=== PATIENT | female | born 1940 | race Caucasian/White ===

== ENCOUNTER 2023-09-10 12:57 | Outpatient (AMB) | payer MEDICARE, SELFPAY ==
--- NOTE | 2023-09-10 13:20 | HO.SPINEOV ---
Intake Vital Signs 09/10/23 13:26 Height 5 ft Weight 220 lb BMI 43.0 Intake Visit Reasons: cervical radiculopathy Intake Note: Ms. Coronel is here today c/o back pain. MRI done @ [place]. [facility] Required: No Allergies No Known Allergies Allergy (Verified 09/10/23 13:25) Assessment & Plan Assessment & Plan (1) Back pain: Code(s): M54.9 - Dorsalgia, unspecified Plan Dear Isai Thank you for referring Mrs. Coronel to our office today. She is a very nice 82-year-old with history of osteoporosis, compression fractures at L3 and L4 with kyphoplasty done at [facility] [place] in [address] Hammonds, who presents to the office with complaint of generalized low back pain. Mostly in the upper lumbar area. No pain radiating down the legs. Occasionally the pain will radiate out to her hips. The pain starts from the moment she gets up in the morning. She will have to rest in a couch/chair position in a certain way in order to get comfortable. Other than that anytime she is up moving around she seems to get a significant amount of discomfort. Even standing at the counter doing dishes for any length of time can cause her pain. She comes in today with an MRI done in March of 2023 showing multiple compression fractures from T12 to L2. She has tried different things to help the pain including heating pads, activity modifications, medication trials including Vicodin and Percocet. The Percocet did help her some but unfortunately gave her episodes of confusion and disorientation so she stopped it. She can not take Motrin because of her kidneys. Remotely in the past she is done cortisone injections and physical therapy. 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 Social hx: She does not smoke, nor use any drugs/alcohol Medications: Lorazepam, gabapentin, Lasix Allergies: None Physical exam: Patient is awake alert oriented x3 no acute distress, she is able stand up out of a chair with slight discomfort, has a standing kyphotic posture, some limitations with strength with her iliopsoas mostly on the right which is secondary to pain but no true neurological weakness. Absent reflexes bilaterally. Imaging review: Lumbar MRI done at [place] shows evidence of kyphoplasty at L3 and L4. She has what looked like healed fractures at T12-L1 and L2. There is significant reversal of the normal lordotic curvature of the spine. There other mild degenerative changes in the lumbar spine lower down. Impression: 82-year-old female presents with back pain likely a constellation of affects from her compression fractures causing suboptimal sagittal balance. At this point based on the imaging that I have, her fractures are healed. I suspect the accentuation of the kyphosis is causing her back muscles to overwork as well as maybe facet joint irritation. Unfortunately because of the quality of her bone, she has not a surgical candidate in the sense that we can not correct the underlying structural abnormality. I offered her the option of undergoing x-rays today in the office to see if there are any new fractures which may be amenable to a kyphoplasty but she deferred this option. She seems to be settled on the fact that this is just going to be her lot in life, and really did not want to pursue much more than that. She was interested in talking with you about injections. I told her considering an LSO brace might not be a bad option. I will send her a prescription for that. We would be glad to see her back if something changes. Thank you for allowing us to care for your patient. The total time spent with this visit with this patient was 45 minutes reviewing history, physical exam, lumbar imaging review, and implementation of treatment plan or further diagnostic testing Cruz Arora MD,PhD [facility] Coding Level of Care Code New Pt Level 4 (91046) Diagnoses Back pain M54.9
[2023-09-10 13:26] VITALS: BMI 43.0
== END 2023-09-10 13:58 | disposition home or self-care (01) ==
PROVIDERS: PCP Student in an Organized Health Care Education/Training Program; Referring Provider Physician Assistant; Visit Provider Physician Assistant
DX: M54.9 Dorsalgia, unspecified (principal)
CPT/HCPCS: 99204

== ENCOUNTER → 2023-09-10 12:57 | Outpatient (BNVA) | payer MEDICARE, SELFPAY | PROVIDERS: PCP Student in an Organized Health Care Education/Training Program; Visit Provider Physician Assistant | DX: M54.9 Dorsalgia, unspecified (principal) | CPT/HCPCS: 99202 ==